=== PATIENT | male | born 1945 | race Caucasian/White ===

== ENCOUNTER → 2020-03-08 | Outpatient (CLI) | payer MEDICARE ==
--- NOTE | 2020-03-08 18:03 | RAD ---
Pelvis and bilateral hips 3 total views INDICATION: Hip pain COMPARISON: None FINDINGS: Intact pelvic ring. Degenerative changes in the included lumbar spine. Sacroiliac joints are unremarkable. Bilateral frog-leg lateral views of both hips show medial joint space narrowing and mild osteophytic spurring on the femoral head, right greater than left. No fracture or dislocation is seen. Subchondral cystic change is present at the right femoral head neck junction. Soft tissues unremarkable. IMPRESSION: No fracture or dislocation. 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 Electronically signed by: Anurag Gotti MD (03/08/2020 6:00 PM) [id number]
== END ==
LOC: DXRAD 13:35
PROVIDERS: ATTEND Orthopaedic Surgery
DX: M16.0 Bilateral primary osteoarthritis of hip (principal); M47.816 Spondylosis without myelopathy or radiculopathy, lumbar region
CPT/HCPCS: 73521